=== PATIENT | female | born 1945 | race African-American/Black ===

== ENCOUNTER 2017-04-13 12:44 | Inpatient (IN) | payer MEDICARE, MEDICAID ==
[~2017-04-13] VITALS: Ht 165.1 cm; Wt 89.8 kg
[~2017-04-13 12:44] MED LIST: ALBUTEROL; AZOR; HYDR-523 PO; LASIX; Prednisone; THEOPHYLLINE
[2017-04-13 14:49] LABS: CLARITY URINE CLEAR (CLEAR); COLOR URINE YELLOW (YELLOW); GLUCOSE URINE NEGATIVE (NEGATIVE); KETONES URINE NEGATIVE (NEGATIVE); LEUKOCYTE ESTERASE URINE NEGATIVE (NEGATIVE); NITRITE URINE NEGATIVE (NEGATIVE); OCCULT BLOOD URINE NEGATIVE (NEGATIVE); PROTEIN URINE NEGATIVE (NEGATIVE); SPECIFIC GRAVITY URINE 1.015 (1.005-1.030); UROBILINOGEN URINE 0.2 E.U./dL (0.2-1.0)
[2017-04-13] MEDS ORDERED: ACETAMINOPHEN 325MG TABLET PO ONE (15:00)
[2017-04-13 15:18] LABS: BASOPHILS % 0.6 % (0.0-2.0); HEMATOCRIT. 37.7 % (36.0-48.0); HEMOGLOBIN. 12.1 g/dL (12.0-16.0); LYMPHOCYTES % 31.2 % (20.0-50.0); MEAN CORPUSCULAR HEMOGLOBIN 28.8 pg (28.0-32.0); MONOCYTES % 14.4 % (2.0-8.0); NEUTROPHILS % 47.8 % (40.0-76.0); PLATELET 327 x1000/uL (130-400); RED BLOOD CELL COUNT 4.19 mill/uL (4.2-5.4); RED CELL DISTRIBUTION WIDTH 15.4 % (11.6-14.6)
[2017-04-13 15:20] LABS: CHLORIDE 96 mEq/L (98-107)
[2017-04-13 15:25] LABS: CARBON DIOXIDE 27 mEq/L (21-32)
[2017-04-13] MEDS ORDERED: ONDANSETRON HCL 4MG/2ML VIAL IV PRN (22:00)
[2017-04-13] MEDS ORDERED: NA PHOS,M-B/NA PHOS,DI-BA ENEMA 118ML PR PRN (22:00)
[2017-04-13] MEDS ORDERED: DOCUSATE SODIUM 100MG CAPSULE PO PRN (22:00)
[2017-04-13] MEDS ORDERED: DIPHENHYDRAMINE 50MG/ML VIAL IV PRN (22:00)
[2017-04-13] MEDS ORDERED: LORAZEPAM 2MG/ML CPJ IV PRN (22:00)
[2017-04-13] MEDS ORDERED: HYDROMORPHONE HCL/PF 2MG/ML CPJ IV PRN (22:00)
[2017-04-13] MEDS ORDERED: ACETAMINOPHEN 325MG TABLET PO PRN (22:00)
[2017-04-13] MEDS ORDERED: MAGNESIUM/ALUMINUM HYDROXIDE/SIMETHICONE 30ML UDC PO PRN (22:00)
[2017-04-13] MEDS ORDERED: IPRATROPIUM/ALBUTEROL 0.5-3(2.5)MG/3ML NEB INH PRN (22:00)
[2017-04-13] MEDS ORDERED: CLONIDINE 0.1MG TABLET PO PRN (22:00)
[2017-04-13] MEDS ORDERED: GUAIFENESIN 200MG/10ML SUGAR FREE UDC PO PRN (22:00)
[2017-04-13 23:03] LABS: CHLORIDE 98 mEq/L (98-107)
[2017-04-13 23:09] LABS: CARBON DIOXIDE 29 mEq/L (21-32)
[2017-04-14 01:00] VITALS: BP 139/84
[2017-04-14] MEDS ORDERED: DEXTROSE 50% WATER 50ML SYRINGE IV PRN (01:45)
[2017-04-14 04:00] VITALS: BP 139/84
[2017-04-14] MEDS: PIPERACILLIN/TAZ 3.375G PREMIX 50 ML IV SCH ×3 (04:56→21:49)
[2017-04-14] MEDS ORDERED: VANCOMYCIN 1250MG in DEXTROSE 5% WATER 250ML IV NR (05:00)
[2017-04-14] MEDS ORDERED: MONT10TA24 PO (06:07)
[2017-04-14] MEDS ORDERED: DIPH25CA83 PO (06:07)
[2017-04-14 06:43] LABS: HEMATOCRIT. 34.8 % (36.0-48.0); HEMOGLOBIN. 11.4 g/dL (12.0-16.0); MEAN CORPUSCULAR HEMOGLOBIN 29.4 pg (28.0-32.0); MEAN CORPUSCULAR VOLUME 90.1 fL (81.0-99.0); MEAN PLATELET VOLUME 7.3 fl (7.4-10.4); PLATELET 319 x1000/uL (130-400); RED BLOOD CELL COUNT 3.87 mill/uL (4.2-5.4); RED CELL DISTRIBUTION WIDTH 14.7 % (11.6-14.6)
[2017-04-14 07:02] LABS: CARBON DIOXIDE 27 mEq/L (21-32); CHLORIDE 97 mEq/L (98-107); HDL CHOLESTEROL 79 mg/dL (40-59); LDL CHOLESTEROL 63 mg/dL (5-100)
[2017-04-14] MEDS: BLOOD SUGAR DIAGNOSTIC STRIP TEST SCH ×4 (07:04→21:49)
[2017-04-14] MEDS: INSULIN LISPRO 100 UNITS/ML SUBCUT SCH ×4 (07:50→21:00)
[2017-04-14 08:00] VITALS: BP 139/77
[2017-04-14 08:06] LABS: PLATELET ESTIMATE NORMAL
[2017-04-14] MEDS: ASPIRIN 81MG EC TABLET PO SCH (09:00)
[2017-04-14] MEDS: ENOXAPARIN 40MG/0.4ML SYR SUBCUT SCH (09:00)
[2017-04-14 12:00] VITALS: BP 145/78
[2017-04-14] MEDS: MULTIVITAMINS,THER W-MINERALS TABLET PO SCH (15:30)
[2017-04-14] MEDS: FOLIC ACID 1MG TABLET PO SCH (15:30)
[2017-04-14] MEDS: THIAMINE HCL 100MG TABLET PO SCH (15:30)
[2017-04-14] MEDS ORDERED: FUROSEMIDE 40MG/4ML VIAL IVP NR (15:36)
[2017-04-14 16:00] VITALS: BP 151/83
[2017-04-14 20:00] VITALS: BP 159/75
[2017-04-14] MEDS: BUDESONIDE 0.5MG/2ML NEB HHN SCH (21:13)
[2017-04-14] MEDS: IPRATROPIUM/ALBUTEROL 0.5-3(2.5)MG/3ML NEB HHN SCH (21:13)
[2017-04-15] VITALS: BP 144/74
[2017-04-15] MEDS: IPRATROPIUM/ALBUTEROL 0.5-3(2.5)MG/3ML NEB HHN SCH ×4 (03:53→21:23)
[2017-04-15 04:00] VITALS: BP 107/89
[2017-04-15] MEDS: PIPERACILLIN/TAZ 3.375G PREMIX 50 ML IV SCH ×3 (04:35→18:30)
[2017-04-15] MEDS: VANCOMYCIN 1250MG in DEXTROSE 5% WATER 250ML IV SCH (05:25)
[2017-04-15 07:05] LABS: CARBON DIOXIDE 29 mEq/L (21-32); CHLORIDE 103 mEq/L (98-107)
[2017-04-15 07:10] LABS: BASOPHILS % 0.8 % (0.0-2.0); EOSINOPHILS % 5.4 % (0.0-5.0); HEMATOCRIT. 33.8 % (36.0-48.0); HEMOGLOBIN. 10.8 g/dL (12.0-16.0); LYMPHOCYTES % 32.3 % (20.0-50.0); MEAN CORPUSCULAR HEMOGLOBIN 28.9 pg (28.0-32.0); MEAN CORPUSCULAR VOLUME 90.2 fL (81.0-99.0); MEAN PLATELET VOLUME 7.2 fl (7.4-10.4); MONOCYTES % 14.2 % (2.0-8.0); NEUTROPHILS % 47.3 % (40.0-76.0); PLATELET 277 x1000/uL (130-400); RED BLOOD CELL COUNT 3.75 mill/uL (4.2-5.4)
[2017-04-15] MEDS: INSULIN LISPRO 100 UNITS/ML SUBCUT SCH ×4 (07:14→21:00)
[2017-04-15] MEDS: BLOOD SUGAR DIAGNOSTIC STRIP TEST SCH ×4 (07:14→21:00)
[2017-04-15 08:00] VITALS: BP 147/73
[2017-04-15] MEDS: ENOXAPARIN 40MG/0.4ML SYR SUBCUT SCH (09:00)
[2017-04-15] MEDS: BUDESONIDE 0.5MG/2ML NEB HHN SCH ×2 (09:15→21:29)
[2017-04-15] MEDS: ASPIRIN 81MG EC TABLET PO SCH (09:18)
[2017-04-15] MEDS: THIAMINE HCL 100MG TABLET PO SCH (09:18)
[2017-04-15] MEDS: FOLIC ACID 1MG TABLET PO SCH (09:18)
[2017-04-15] MEDS: FUROSEMIDE 40MG/4ML VIAL IVP SCH (09:18)
[2017-04-15] MEDS: MULTIVITAMINS,THER W-MINERALS TABLET PO SCH (09:18)
[2017-04-15] MEDS: GUAIFENESIN 600MG ER TABLET PO SCH ×2 (12:50→22:33)
[2017-04-15 16:00] VITALS: BP 141/73
[2017-04-15 20:00] VITALS: BP 93/63
[2017-04-15] MEDS: HYDROCODONE/ACETAMINOPHEN 5/325MG TABLET PO PRN (22:46)
[2017-04-16] VITALS: BP 117/64
[2017-04-16] MEDS: PIPERACILLIN/TAZ 3.375G PREMIX 50 ML IV SCH ×5 (03:05→23:43)
[2017-04-16 04:00] VITALS: BP 160/92
[2017-04-16] MEDS: IPRATROPIUM/ALBUTEROL 0.5-3(2.5)MG/3ML NEB HHN SCH ×4 (04:07→20:12)
[2017-04-16] MEDS: INSULIN LISPRO 100 UNITS/ML SUBCUT SCH ×4 (07:50→21:00)
[2017-04-16 08:00] VITALS: BP 161/75
[2017-04-16] MEDS: BLOOD SUGAR DIAGNOSTIC STRIP TEST SCH ×4 (08:09→21:40)
[2017-04-16] MEDS: VANCOMYCIN 1250MG in DEXTROSE 5% WATER 250ML IV SCH (08:42)
[2017-04-16] MEDS: ENOXAPARIN 40MG/0.4ML SYR SUBCUT SCH (09:00)
[2017-04-16] MEDS: BUDESONIDE 0.5MG/2ML NEB HHN SCH ×2 (09:48→20:12)
[2017-04-16] MEDS: MULTIVITAMINS,THER W-MINERALS TABLET PO SCH (11:22)
[2017-04-16] MEDS: THIAMINE HCL 100MG TABLET PO SCH (11:22)
[2017-04-16] MEDS: ASPIRIN 81MG EC TABLET PO SCH (11:23)
[2017-04-16] MEDS: GUAIFENESIN 600MG ER TABLET PO SCH ×2 (11:23→20:07)
[2017-04-16] MEDS: FOLIC ACID 1MG TABLET PO SCH (11:23)
[2017-04-16] MEDS: FUROSEMIDE 40MG/4ML VIAL IVP SCH (11:24)
[2017-04-16 12:00] VITALS: BP 150/70
[2017-04-16 16:00] VITALS: BP 143/83
[2017-04-16 20:00] VITALS: BP 129/69
[2017-04-16] MEDS: HYDROCODONE/ACETAMINOPHEN 5/325MG TABLET PO PRN (20:07)
[2017-04-17] VITALS: BP 148/92
[2017-04-17] MEDS: IPRATROPIUM/ALBUTEROL 0.5-3(2.5)MG/3ML NEB HHN SCH ×4 (02:15→20:42)
[2017-04-17 04:00] VITALS: BP 138/81
[2017-04-17] MEDS: PIPERACILLIN/TAZ 3.375G PREMIX 50 ML IV SCH ×2 (05:53→12:00)
[2017-04-17] MEDS: VANCOMYCIN 1250MG in DEXTROSE 5% WATER 250ML IV SCH (06:34)
[2017-04-17] MEDS: BLOOD SUGAR DIAGNOSTIC STRIP TEST SCH ×4 (06:38→21:00)
[2017-04-17 07:06] LABS: HEMATOCRIT. 31.7 % (36.0-48.0); HEMOGLOBIN. 10.2 g/dL (12.0-16.0); MEAN CORPUSCULAR HEMOGLOBIN 28.9 pg (28.0-32.0); MEAN CORPUSCULAR VOLUME 89.3 fL (81.0-99.0); MEAN PLATELET VOLUME 7.3 fl (7.4-10.4); PLATELET 270 x1000/uL (130-400); RED BLOOD CELL COUNT 3.54 mill/uL (4.2-5.4); RED CELL DISTRIBUTION WIDTH 14.5 % (11.6-14.6)
[2017-04-17] MEDS: INSULIN LISPRO 100 UNITS/ML SUBCUT SCH ×4 (07:50→21:00)
[2017-04-17 08:00] VITALS: BP 130/80
[2017-04-17] MEDS: BUDESONIDE 0.5MG/2ML NEB HHN SCH (08:05)
[2017-04-17 08:24] LABS: CARBON DIOXIDE 28 mEq/L (21-32); CHLORIDE 101 mEq/L (98-107); VANCOMYCIN TROUGH 8.3 ug/mL (5.0-10.0)
[2017-04-17] MEDS: FUROSEMIDE 40MG/4ML VIAL IVP SCH (09:00)
[2017-04-17] MEDS: ENOXAPARIN 40MG/0.4ML SYR SUBCUT SCH (09:33)
[2017-04-17] MEDS: FOLIC ACID 1MG TABLET PO SCH (09:34)
[2017-04-17] MEDS: THIAMINE HCL 100MG TABLET PO SCH (09:34)
[2017-04-17] MEDS: GUAIFENESIN 600MG ER TABLET PO SCH ×2 (09:34→23:55)
[2017-04-17] MEDS: MULTIVITAMINS,THER W-MINERALS TABLET PO SCH (09:34)
[2017-04-17] MEDS: ASPIRIN 81MG EC TABLET PO SCH (09:34)
[2017-04-17 12:00] VITALS: BP 128/82
[2017-04-17 12:45] LABS: PLATELET ESTIMATE NORMAL
[2017-04-17 16:00] VITALS: BP 140/83
[2017-04-17 20:00] VITALS: BP 131/72
[2017-04-17] MEDS: HYDROCODONE/ACETAMINOPHEN 5/325MG TABLET PO PRN (22:47)
[2017-04-18] VITALS: BP 130/86
[2017-04-18] MEDS ORDERED: VANCOMYCIN 1250MG in DEXTROSE 5% WATER 250ML IV SCH ×2
[2017-04-18] MEDS: IPRATROPIUM/ALBUTEROL 0.5-3(2.5)MG/3ML NEB HHN SCH ×2 (02:18→08:35)
[2017-04-18 04:00] VITALS: BP 154/86
[2017-04-18 06:45] LABS: HEMATOCRIT. 33.2 % (36.0-48.0); HEMOGLOBIN. 10.5 g/dL (12.0-16.0); MEAN CORPUSCULAR HEMOGLOBIN 28.4 pg (28.0-32.0); MEAN CORPUSCULAR VOLUME 89.8 fL (81.0-99.0); MEAN PLATELET VOLUME 7.3 fl (7.4-10.4); PLATELET 250 x1000/uL (130-400); RED CELL DISTRIBUTION WIDTH 14.9 % (11.6-14.6)
[2017-04-18] MEDS: BLOOD SUGAR DIAGNOSTIC STRIP TEST SCH ×2 (07:20→13:00)
[2017-04-18 07:29] LABS: CARBON DIOXIDE 31 mEq/L (21-32); CHLORIDE 103 mEq/L (98-107)
[2017-04-18] MEDS: INSULIN LISPRO 100 UNITS/ML SUBCUT SCH ×2 (07:50→12:50)
[2017-04-18 08:00] VITALS: BP 160/91
[2017-04-18] MEDS: ASPIRIN 81MG EC TABLET PO SCH (09:05)
[2017-04-18] MEDS: FOLIC ACID 1MG TABLET PO SCH (09:05)
[2017-04-18] MEDS: MULTIVITAMINS,THER W-MINERALS TABLET PO SCH (09:05)
[2017-04-18] MEDS: GUAIFENESIN 600MG ER TABLET PO SCH (09:05)
[2017-04-18] MEDS: HYDROCODONE/ACETAMINOPHEN 5/325MG TABLET PO PRN (09:06)
[2017-04-18] MEDS: ENOXAPARIN 40MG/0.4ML SYR SUBCUT SCH (09:08)
[2017-04-18] MEDS: THIAMINE HCL 100MG TABLET PO SCH (09:19)
[2017-04-18 10:24] VITALS: BP 160/91
[2017-04-18 12:00] VITALS: BP 160/91
[2017-04-18 14:25] LABS: PLATELET ESTIMATE NORMAL
== END 2017-04-18 15:31 | disposition home or self-care (01) | DRG 720 ==
LOC: ER 12:51 → 6EST 22:40 → ENRESERV 23:24
PROVIDERS: ADMIT Internal Medicine; ATTEND Internal Medicine
DX: A41.9 Sepsis, unspecified organism (principal); J96.00 Acute respiratory failure, unspecified whether with hypoxia or hypercapnia; I50.33 Acute on chronic diastolic (congestive) heart failure; J18.9 Pneumonia, unspecified organism; E11.9 Type 2 diabetes mellitus without complications; I27.2 Other secondary pulmonary hypertension; I11.0 Hypertensive heart disease with heart failure; L03.115 Cellulitis of right lower limb; D64.9 Anemia, unspecified; J44.1 Chronic obstructive pulmonary disease with (acute) exacerbation; L03.116 Cellulitis of left lower limb; F10.10 Alcohol abuse, uncomplicated; I25.10 Atherosclerotic heart disease of native coronary artery without angina pectoris; J44.0 Chronic obstructive pulmonary disease with (acute) lower respiratory infection; Z80.3 Family history of malignant neoplasm of breast
CPT/HCPCS: 36415; 71010; 80048; 80053; 80061; 80202; 81003; 82962; 83605; 83735; 83880; 85025; 86140; 87040; 93306; 94640; 99285; J1170; J1650; J1940; J2543; J3370; J7040; J7050; J7060; J7620; J7626